=== PATIENT | female | born 1950 | race Hispanic/Latino ===

== ENCOUNTER → 2022-08-31 | Outpatient (CLI) | payer MEDICARE | LOC: US 07:47 | PROVIDERS: ATTEND Nurse Practitioner Gerontology | DX: R74.8 Abnormal levels of other serum enzymes (principal) | CPT/HCPCS: 76705 ==

== ENCOUNTER → 2024-06-25 | Outpatient (REF) | payer MEDICARE | LOC: RAD 10:29 | PROVIDERS: ATTEND Family Medicine | DX: M54.6 Pain in thoracic spine (principal) | CPT/HCPCS: 72072 ==